=== PATIENT | female | born 1945 | race Hispanic/Latino ===

== ENCOUNTER 2020-11-06 13:01 | Inpatient (IN) | payer MEDICARE ==
[~2020-11-06] VITALS: Ht 154.9 cm; Wt 47.6 kg
[2020-11-06 13:58] LABS: BASOPHILS % 0.3 % (0.0-1.0); HEMATOCRIT 42.8 % (34.2-44.1); HEMOGLOBIN 14.9 g/dL (12.0-16.0); LYMPHOCYTES # (AUTO) 2.3 (1.0-3.2); LYMPHOCYTES % 25.6 % (18.0-39.1); MEAN CORPUSCULAR HEMOGLOBIN 31.6 pg (28-32); MEAN CORPUSCULAR HGB CONC 34.8 g/dL (31-35); MEAN CORPUSCULAR VOLUME 90.9 fL (81-99); MONOCYTES # (AUTO) 0.7 (0.2-0.8); MONOCYTES % 7.3 % (4.4-11.3); NEUTROPHILS % 66.2 % (38.7-80.0); PLATELET COUNT 331 x10e3/uL (140-360); RED BLOOD COUNT 4.71 x10e6/uL (3.6-5.1); RED CELL DISTRIBUTION WIDTH 12.9 % (11.7-14.4)
[2020-11-06 14:29] LABS: ALBUMIN 4.1 g/dL (3.5-5.0); ANION GAP 19.7 mmol/L (8-16); CALCIUM 9.3 mg/dL (8.4-10.2); CREATININE, SERUM 1.15 mg/dL (0.57-1.11)
[2020-11-06 14:33] LABS: POTASSIUM 2.7 mmol/L (3.5-5.1)
[2020-11-06 14:35] LABS: CREATINE KINASE MB 15.8 ng/mL (0-5.0)
[2020-11-06 14:43] LABS: CLARITY,URINE SL CLOUDY (CLEAR); COLOR,URINE STRAW (YELLOW); KETONES,URINE NEGATIVE (NEGATIVE); LEUKOCYTE ESTERASE ,URINE SMALL (NEGATIVE); NITRITE,URINE NEGATIVE (NEGATIVE); PROTEIN,URINE DIPSTICK TRACE (NEGATIVE); URINE UROBILINOGEN 0.2 mg/dL (0.2 - 1)
[2020-11-06] MEDS ORDERED: POTASSIUM CHLORIDE 20 MEQ TAB CR PO STA (14:44)
[2020-11-06 14:57] LABS: AMORPHOUS SEDIMENT,URINE MODERATE (FEW); BACTERIA,URINE MODERATE /HPF; EPITHELIAL CELLS,URINE FEW /LPF
[2020-11-06] MEDS ORDERED: POTASSIUM CHLORIDE 20MEQ/100ML 100 ML IV ONE (15:00)
[2020-11-06 17:03] LABS: CREATINE KINASE MB 15.6 ng/mL (0-5.0)
[2020-11-06] MEDS: SODIUM CHLORIDE 0.9% 1000ML 1,000 ML IV SCH (20:18)
[2020-11-07] VITALS (9 sets, daily range): BP systolic 127–160; BP diastolic 57–121
[2020-11-07] MEDS: SODIUM CHLORIDE 0.9% 1000ML 1,000 ML IV SCH ×2 (01:35→05:09)
[2020-11-07 01:49] LABS: ANION GAP 15.4 mmol/L (8-16); CREATININE, SERUM 1.09 mg/dL (0.57-1.11)
[2020-11-07 01:59] LABS: POTASSIUM 4.4 mmol/L (3.5-5.1)
[2020-11-07 02:06] LABS: CREATINE KINASE MB 13.4 ng/mL (0-5.0)
[2020-11-07 06:07] LABS: BASOPHILS % 0.3 % (0.0-1.0); HEMATOCRIT 37.8 % (34.2-44.1); HEMOGLOBIN 12.7 g/dL (12.0-16.0); LYMPHOCYTES # (AUTO) 3.2 (1.0-3.2); LYMPHOCYTES % 35.8 % (18.0-39.1); MEAN CORPUSCULAR HEMOGLOBIN 31.4 pg (28-32); MEAN CORPUSCULAR HGB CONC 33.6 g/dL (31-35); MEAN CORPUSCULAR VOLUME 93.6 fL (81-99); MONOCYTES % 11.5 % (4.4-11.3); NEUTROPHILS # (AUTO) 4.7 (2.1-6.9); NEUTROPHILS % 51.8 % (38.7-80.0); PLATELET COUNT 260 x10e3/uL (140-360); RED BLOOD COUNT 4.04 x10e6/uL (3.6-5.1); RED CELL DISTRIBUTION WIDTH 13.1 % (11.7-14.4)
[2020-11-07 06:42] LABS: CREATINE KINASE MB 14.1 ng/mL (0-5.0)
[2020-11-07 07:21] LABS: ALANINE AMINOTRANSFERASE 22 IU/L (0-55); ALBUMIN 3.5 g/dL (3.5-5.0); ALBUMIN/GLOBULIN RATIO 1.1 (0.8-2.0); ALKALINE PHOSPHATASE 102 IU/L (40-150); ANION GAP 11.7 mmol/L (8-16); BLOOD UREA NITROGEN 24 mg/dL (7-26); BUN/CREATININE RATIO 28 (6-25); CALCIUM 8.5 mg/dL (8.4-10.2); CARBON DIOXIDE 27 mmol/L (22-29); CHLORIDE 106 mmol/L (98-107); CREATININE, SERUM 0.86 mg/dL (0.57-1.11); EST GLOMERULAR FILTRATION RATE > 60 ML/MIN (60-); GLUCOSE 104 mg/dL (74-118); SODIUM 142 mmol/L (136-145)
[2020-11-07 07:22] LABS: POTASSIUM 2.7 mmol/L (3.5-5.1)
[2020-11-07] MEDS ORDERED: POTASSIUM CHLORIDE 20 MEQ TAB CR PO NR (07:23)
[2020-11-07] MEDS ORDERED: POTASSIUM CHLORIDE 20MEQ/100ML 100 ML IV ONE (07:30)
[2020-11-07] MEDS ORDERED: ATORVASTATIN CA40 MG PO (11:28)
[2020-11-07] MEDS ORDERED: GEMFIBROZIL600 MG PO (11:28)
[2020-11-07] MEDS ORDERED: MEMANTINE HCL5 MG PO (11:28)
[2020-11-07] MEDS ORDERED: HYDROCHLOROTH12.5 MG PO (11:28)
[2020-11-07] MEDS ORDERED: SERTRALINE HCL100 MG PO (11:28)
[2020-11-07] MEDS ORDERED: QUETIAPINE FUMA25 MG PO (11:28)
[2020-11-07] MEDS ORDERED: LOPRESSOR25 MG PO (11:28)
[2020-11-07] MEDS ORDERED: FUROSEMIDE40 MG PO (11:28)
[2020-11-07] MEDS ORDERED: LOSARTAN POTAS100 MG PO (11:35)
[2020-11-07] MEDS ORDERED: SERTRALINE HCL50 MG PO (11:35)
[2020-11-07] MEDS ORDERED: PEPCID40 MG PO (11:35)
[2020-11-07] MEDS ORDERED: ULTRAM50 MG PO (11:36)
[2020-11-08] VITALS (9 sets, daily range): BP systolic 122–148; BP diastolic 54–121
[2020-11-08 06:56] LABS: ALANINE AMINOTRANSFERASE 17 IU/L (0-55); ALBUMIN/GLOBULIN RATIO 1.1 (0.8-2.0); ALKALINE PHOSPHATASE 91 IU/L (40-150); ANION GAP 9.3 mmol/L (8-16); BLOOD UREA NITROGEN 15 mg/dL (7-26); BUN/CREATININE RATIO 19 (6-25); CALCIUM 8.4 mg/dL (8.4-10.2); CARBON DIOXIDE 25 mmol/L (22-29); CHLORIDE 114 mmol/L (98-107); CHOL/HDL RATIO 3.5 (3.0-3.6); CHOLESTEROL 120 MD/DL (0-199); CREATININE, SERUM 0.77 mg/dL (0.57-1.11); EST GLOMERULAR FILTRATION RATE > 60 ML/MIN (60-); GLUCOSE 82 mg/dL (74-118); HDL CHOLESTEROL 34 MG/DL (40-60); LDL CHOLESTEROL 70 MG/DL (60-130); MAGNESIUM 1.8 MG/DL (1.3-2.1); POTASSIUM 3.3 mmol/L (3.5-5.1); SODIUM 145 mmol/L (136-145); TRIGLYCERIDES 78 MG/DL (0-149)
[2020-11-08] MEDS: ASPIRIN 81 MG ENTERIC COATED PO SCH (09:57)
[2020-11-09] VITALS (8 sets, daily range): BP systolic 113–135; BP diastolic 49–65
[2020-11-09 10:40] LABS: ANION GAP 11.2 mmol/L (8-16); BLOOD UREA NITROGEN 17 mg/dL (7-26); BUN/CREATININE RATIO 23 (6-25); CALCIUM 8.4 mg/dL (8.4-10.2); CARBON DIOXIDE 27 mmol/L (22-29); CHLORIDE 108 mmol/L (98-107); CREATININE, SERUM 0.75 mg/dL (0.57-1.11); EST GLOMERULAR FILTRATION RATE > 60 ML/MIN (60-); GLUCOSE 98 mg/dL (74-118); POTASSIUM 3.2 mmol/L (3.5-5.1); SODIUM 143 mmol/L (136-145)
[2020-11-09] MEDS: SERTRALINE HCL 50 MG TAB PO SCH (10:45)
[2020-11-09] MEDS: METOPROLOL TARTRATE 25 MG TAB PO SCH ×2 (10:45→16:47)
[2020-11-09] MEDS: GEMFIBROZIL 600 MG TAB PO SCH (10:45)
[2020-11-09] MEDS: MEMANTINE 10 MG TAB PO SCH (10:45)
[2020-11-09] MEDS: FAMOTIDINE 20 MG TAB PO SCH (10:45)
[2020-11-09] MEDS: LOSARTAN POTASSIUM 100 MG TAB PO SCH (10:45)
[2020-11-09] MEDS: ASPIRIN 81 MG ENTERIC COATED PO SCH (10:45)
[2020-11-09] MEDS: ATORVASTATIN 40 MG TAB PO SCH (20:06)
[2020-11-10] VITALS (8 sets, daily range): BP systolic 103–125; BP diastolic 47–61
[2020-11-10 06:49] LABS: ANION GAP 8.4 mmol/L (8-16); BLOOD UREA NITROGEN 18 mg/dL (7-26); BUN/CREATININE RATIO 24 (6-25); CALCIUM 8.2 mg/dL (8.4-10.2); CARBON DIOXIDE 26 mmol/L (22-29); CHLORIDE 112 mmol/L (98-107); CREATININE, SERUM 0.74 mg/dL (0.57-1.11); EST GLOMERULAR FILTRATION RATE > 60 ML/MIN (60-); GLUCOSE 93 mg/dL (74-118); POTASSIUM 3.4 mmol/L (3.5-5.1); SODIUM 143 mmol/L (136-145)
[2020-11-10] MEDS: GEMFIBROZIL 600 MG TAB PO SCH (09:05)
[2020-11-10] MEDS: MEMANTINE 10 MG TAB PO SCH (09:05)
[2020-11-10] MEDS: METOPROLOL TARTRATE 25 MG TAB PO SCH ×2 (09:05→16:55)
[2020-11-10] MEDS: ASPIRIN 81 MG ENTERIC COATED PO SCH (09:05)
[2020-11-10] MEDS: FAMOTIDINE 20 MG TAB PO SCH (09:05)
[2020-11-10] MEDS: SERTRALINE HCL 50 MG TAB PO SCH (09:05)
[2020-11-10] MEDS: LOSARTAN POTASSIUM 100 MG TAB PO SCH (09:05)
[2020-11-10] MEDS ORDERED: ASPIRIN EC81 MG PO (19:51)
[2020-11-10] MEDS: ATORVASTATIN 40 MG TAB PO SCH (21:50)
[2020-11-11 00:08] VITALS: BP 110/72
[2020-11-11 04:00] VITALS: BP 125/64
[2020-11-11 07:49] VITALS: BP 123/61
[2020-11-11] MEDS: MEMANTINE 10 MG TAB PO SCH (07:57)
[2020-11-11] MEDS: SERTRALINE HCL 50 MG TAB PO SCH (07:57)
[2020-11-11] MEDS: GEMFIBROZIL 600 MG TAB PO SCH (07:57)
[2020-11-11] MEDS: LOSARTAN POTASSIUM 100 MG TAB PO SCH (07:57)
[2020-11-11] MEDS: FAMOTIDINE 20 MG TAB PO SCH (07:57)
[2020-11-11] MEDS: METOPROLOL TARTRATE 25 MG TAB PO SCH (07:57)
[2020-11-11] MEDS: ASPIRIN 81 MG ENTERIC COATED PO SCH (07:57)
[2020-11-11 08:29] VITALS: BP 123/61
== END 2020-11-11 09:46 | disposition home or self-care (01) | DRG 641 ==
LOC: ER 13:21 → ERHOLD 15:57 → MED/SURG3 11-07 08:18 → OBSVTOIN 11-07 14:34
PROVIDERS: ADMIT Internal Medicine; ATTEND Internal Medicine
DX: E87.6 Hypokalemia (principal); N17.9 Acute kidney failure, unspecified; E86.0 Dehydration; I10 Essential (primary) hypertension; R55 Syncope and collapse; E78.5 Hyperlipidemia, unspecified; R42 Dizziness and giddiness; F03.90 Unspecified dementia, unspecified severity, without behavioral disturbance, psychotic disturbance, mood disturbance, and anxiety; Z82.49 Family history of ischemic heart disease and other diseases of the circulatory system; Z20.822 Contact with and (suspected) exposure to COVID-19
CPT/HCPCS: 36415; 70450; 70551; 71045; 80048; 80053; 80061; 81001; 82550; 82553; 83735; 84132; 84484; 85025; 93005; 93306; 93880; 99285; G0378; J3480; J7030; U0002